=== PATIENT | male | born 1985 | race African-American/Black ===

== ENCOUNTER 2018-08-24 05:09 | Day surgery (SDC) | payer OTHER ==
--- NOTE | 2018-08-23 20:20 | PDGENHP ---
History and Physical - Chief Complaint LEFT HIP PAIN - History of Present Illness 1.~History of LEFT ROSALBA/Left Hip scope 2. ~History of RIGHT ROSALBA September 2007 3.~~Heterotopic ossification~and retained hardware~RIGHT hip HISTORY OF PRESENT ILLNESS: Megais a~32 y.o.~~active~male~who I have had the pleasure to consult on today. ~I have enjoyed meeting him.~Mc~lives in [place].~~[employer]orks in [employer].~~He~is ;~he~has 1~child.~~Megaenjoys weight lifting. Cuate's~left~hip pain~started 3 years ago, with~no~recalled trauma or injury, and with~no~previous complaints.~Megadoes not have~a known history of hip dysplasia. He had a Right ROSALBA September 2007; [place], [place] Presentation today is of~anterolateral~left~hip pain. ~The hip~does not~wake him ~at night and~does not~click and catch on~him. Sitting~can be uncomfortable~for him.~Megadoes~report suffering from lower back pain episodes. Megahas~participated in physical therapy (3 months)~and has~tried other MRI injection no pain relief~conservative measures including massage therapy and~ weight lifting.~Maryannhas not~received sufficient symptomatic improvement. Megahas not~utilized medication for pain management. Megahas~issues with the right~hip. ~ Megaunderstands that~maryannhas a hip and pelvis problem which should be researched and wishes to get a better understanding of~his~hip status, followed by an establishment of a treatment strategy, hopingmarciwould be able to get back to~his~well being active life. History: Past medical history:~~ None which is relevant~ Relevant familial history:~Mom: OA, RA, diabetes Past surgical history:~ No. Surgery Anesthesia 1 R ROSALBA general 2 Cyst excisions general 3 Umbilical hernia general Megadenies problematic issues with general anesthesia in the past. I have reviewed, verified and agree with the past medical, surgical, family and social history. Current Medications:~currently has no medications in their medication list. ALLERGIES:~has No Known Allergies. Objective: Physical Examination: Cutae~is 6~feet~0~inches tall and weighs~202~Lbs. Cuate~is AAO x3; he~is well- nourished, in NAD. Skin is warm and dry. ~Breathing is non-labored. ~CV with RRR by pulse. Abdomen is soft, NTND. Currently,~he~walks with a~normal~gait. Trendelenburg sign is~negative~and proprioception~is normal,~both~sides. He~presents~with mild~signs of joint laxity.~Beightons Score:~2 Lower spine examination is~negative~for sciatic or femoral nerve irritation with negative~SLR &~femoral stretch tests. Range of motion of the spine is normal~for flexion, extension, and rotations,~with~associated~left lumbar~pain. Strength, Sensation and pulses are~normal -~bilaterally Ankles and knees exams are~normal~and~no~mal-alignment is evident.~ He~has~leg length discrepancy~Right short 1cm~ Thigh circumference is~asymmetric~with low~muscle atrophy~on right~side. RIGHT HIP: Bony protrusion over AIIS Hip ROM (degrees): FL ER At 90~hip FL IR At 90~hip FL AB AD EX IR Neutral hip ER Neutral hip R 90 50 20 40 5 10 55 40 L 105 70 15 50 10 20 45 50 Specific hip and pelvis tests: Quadrant GEORGETTE Roll Add. Longus R ++ ++ Negative + L +++ +++ Negative Negative Glut. Med ITB R Negative 5/5 strength Negative 5/5 strength L Negative 5/5 strength Negative 5/5 strength Squeeze test measured~normal Bony Symphysis pubis is~pain free~to touch while concentric activity of the rectus abdominis, does not~produce pain at its insertion. Ilio Psos specific tests are~positive for pain during cycling for~the left hip~ and uremarkable for~snap.~ Greater trochanteric burse is~painful~on both hips, left > right. Piriformis tests: FAIR is~negative,~with no~local signs of neuritis related to sciatic nerve. SIJs examination is~produces pain on~left side~with~normal~GEORGETTE in relation and local tenderness. Hamstrings tests are~negative~functional contraction and negative~tendinopathy both hips. On a daily basis, the following percentages reflectNilesh's overall total pain: Deep hip:~70% GT:~30% Imaging: Radiology studies which I~have personally reviewed, analyzed and measured are below: XR: AP of the hip and pelvis: Performed in a~suboptimal~technique Coccyx~bleow~pubic symphysis Standing [place]~Lines are interrupted~On the LEFT Minimal~Pathological signs are seen in the Symphysis Pubis.~ Minimal~Pathological signs are seen at the Ischial~tuberosity. ~ Specific measurements show: NSA~ LCE Sourcil~Angle Sharp's angle Lat. Cam Lat. Pincer C.Over~sign Head~Coverage % ATDmm R N 25 12 43 - - - 78 N L N 8 26 47 + - - 57 N Pos. wall sign ISS NAD ~~Dysplasia Comments R + ++ 18~mm + L + Negative 21~mm +++ Sclerosis Sup. Lat. OA Cysts Joint Space-WBZ Joint Space-Medial R Negative Negative Negative 6.4~mm 4.5~mm L Negative Negative Negative 5.8~mm 5.2~mm X Table lateral: Anterior cam lesion is~seen~on the left hip. Alpha Angle: ~ Left~65~degrees MRI shows:~good cartilage coverage,~some anterior~edema~and small sub chondral cyst, hypertrophic labrum, labral tear Impression and plan:Zoraida Ayoubis a~32 y.o.~active male~suffering from symptomatic~left~hip pain due to Left~Hip Dyplasia~and cam type DELFINO~causing significant disability to~him~and altering~his~sport and life activities. Physical examination, imaging, and~his~story correspond with the diagnosis mentioned above. I explained that hip dysplasia is a condition wherein the hip joint has excessive play~and instability due to a variety of factors, including the depth and adequacy of the socket, the orientation of the femur bone, and ligament laxity around the hip joint. Dysplasia ranges in severity from borderline to zack, with treatment options being specific to the specific nature of the problem. Left untreated, the instability in the hip joint can cause progressive tearing of the labrum and deterioration of the surface cartilage, ultimately resulting in progressive osteoarthritis of the hip. I explained that femoroacetabular impingement (DELFINO - Cam type) arises due to a bony or soft tissue conflict between the femur (ball) and acetabulum (socket) caused by an abnormality in the shape of the femoral head and neck. Over time, repetitive impingement can result in damage to the labrum and adjacent surface cartilage within the socket, ultimately giving rise to progressive osteoarthritis of the hip. I explained that although a labral tear can be a source of pain, it is rarely the root of the problem and typically occurs secondary to an underlying abnormality in the shape and mechanics of the hip joint. I reviewed conservative treatment options for Dysplasia and DELFINO including activity modification to avoid positions of impingement or instability, physical therapy, non-steroidal anti-inflammatory medications, and various injections (corticosteroid and PRP) aimed at reducing inflammation in the hip joint or/and preventing dynamic instability and impingement. PRP injections may promote healing and reduce symptoms in certain cases but it will not repair chronically damaged tissue. Although these measures may help to buy time~and reduce current level of symptoms, they are not a definitive solution to the problem given the underlying abnormality in the shape of the hip joint. Patients who have failed conservative management and continue to experience symptoms are candidates for definitive surgical treatment, which may consist of hip arthroscopy alone or in combination with more invasive bony realignment procedures of the hip socket called periacetabular osteotomy (ROSALBA). Hip arthroscopy typically includes treating the labrum with either repair or reconstruction of the torn labrum; as well as addressing the underlying abnormalities by restoring the normal shape to the hip joint. If the cartilage is damaged a Microfracture surgical procedure may also be necessary to help stimulate the growth of fibrocartilage. If a patient requires a labral reconstruction or a Microfracture, the initial rehabilitation from the surgery may take longer, but the computer terminal operator results are typically favorable. I reviewed the technical aspects of periacetabular osteotomy (ROSALBA) including risks, benefits, and expected course of recovery.~Cuate~understands that ROSALBA is an inpatient procedure carried out through two medium sized incisions on the front and back of the hip joint. The hip socket is cut, realigned, and stabilized with 2 3 internal screws. Risks include infection, bleeding, injury to nearby nerves or vessels, stiffness, persistent pain, instability, failure of bony healing, implant related complications, and venous thromboembolic disease. Rarely, revision surgery may be required to address these problems. Risks, potential complications, side effects and recovery from surgical procedure were discussed in length. We explained how this surgery is an open procedure, and though patients tend to do well in the long-term, it involves significant pain in the first 2-4 weeks post-op and a rather lengthy rehab.~Overall recovery takes approximately 6 12~months depending on the extent of damage and degree of repair. Megaunderstands that he~will undergo hip arthroscopy 1 week prior to the ROSALBA to address damage inside the hip joint. Megaunderstands that hip arthroscopy and ROSALBA are two separate procedures that are best performed one week apart, with the arthroscopy commencing first to "tighten up" any pathology evident in the hip joint (labral repair, etc.) and the ROSALBA open procedure occurring 7-10 days later to realign the acetabulum. Megawill review the info presented. Megawill contact us if he~wishes to pursue further treatment in the future. Megais happy with this plan. I have also supplied~him~with handouts, outlining the expected surgical treatment and rehab involved. I wish~CuateZoraidaall the best, ~~ John Schrader, PAC History Information - Allergies/Home Medication List Allergies/Adverse Reactions: No Known Allergies Allergy (Unverified 07/30/18 16:34) Home Medications: Herbals/Supplements -Info Only 07/30/18 [Last Taken Unknown] I have personally reviewed and updated: medical history - Social History Smoking Status: Never smoked Review of Systems Review of Systems: Physical Exam Physical Exam:
[2018-08-24] MEDS ORDERED: PREGABALIN 150 MG CAP PO ONE (05:34)
[2018-08-24] MEDS ORDERED: ACETAMINOPHEN 500 MG TAB PO ONE (05:34)
[2018-08-24] MEDS ORDERED: ceFAZolin 2 GM/DEXTROSE 100 ML IV ONE (05:34)
[2018-08-24] MEDS ORDERED: LR 1,000 ML IV ONE (05:36)
--- NOTE | 2018-08-24 06:46 | PDANEPAE ---
ANE History of Present Illness hip pain ANE Past Medical History - Cardiovascular History Hx Hypertension: No Hx Arrhythmias: No Hx Chest Pain: No Hx Coronary Artery / Peripheral Vascular Disease: No Hx CHF / Valvular Disease: No Hx Palpitations: No - Pulmonary History Hx COPD: No Hx Asthma/Reactive Airway Disease: No Hx Recent Upper Respiratory Infection: No Hx Oxygen in Use at Home: No Hx Sleep Apnea: No Sleep Apnea Screening Result - Last Documented: Negative - Neurologic History Hx Cerebrovascular Accident: No Hx Seizures: No Hx Dementia: No - Endocrine History Hx Diabetes: No Hypothyroid: No Hyperthyroid: No Obesity: no - Renal History Hx Renal Disorders: No - Liver History Hx Hepatic Disorders: No - Neurological & Psychiatric Hx Hx Neurological and Psychiatric Disorders: No - Cancer History Hx Cancer: No - Congenital Disorder History Hx Congenital Disorders: No - GI History GERD: no Hx Gastrointestinal Disorders: No - Other Health History Other Health History: LACTOSE INTOLERANT - Chronic Pain History Chronic Pain: Yes (ROBYN HIPS, BONES) - Surgical History Prior Surgeries: ARTHROSCOPY & ROSALBA L HIP. CYSTIC ACNE - OCCIPITAL & L AXILLA ANE Review of Systems Review of systems is: negative Review of Systems: - Exercise capacity METS (RN): 5 METS ANE Patient History - Allergies Allergies/Adverse Reactions: No Known Allergies Allergy (Unverified 07/30/18 16:34) - Home Medications Home medications: home medication list seen and reviewed Home Medications: Herbals/Supplements -Info Only 07/30/18 [Last Taken 08/20/18] - NPO status NPO Status: no food or drink >8 hours NPO Since - Liquids (Date): 08/23/18 NPO Since - Liquids (Time): 19:00 NPO Since - Solids (Date): 08/23/18 NPO Since - Solids (Time): 18:00 - Anes Hx Anes Hx: no prior problems - Smoking Hx Smoking Status: Never smoked - Family Anes Hx Family Anes Hx: none Family Hx Anesthesia Complications: NEG ANE Labs/Vital Signs - Vital Signs Blood Pressure: 116/67 Heart Rate: 116 Respiratory Rate: 16 O2 Sat (%): 97 Height: 182.88 cm Weight: 95.254 kg ANE Physical Exam - Airway Neck exam: FROM Mallampati Score: Class 2 Mouth exam: normal dental/mouth exam - Pulmonary Pulmonary: no respiratory distress, clear to auscultation - Cardiovascular Cardiovascular: regular rate and rhythym, no murmur, rub, or gallop - ASA Status ASA Status: I ANE Anesthesia Plan Anesthesia Plan: general endotracheal anesthesia, GA w LMA
[2018-08-24] MEDS ORDERED: LIDOCAINE 1% 300 MG/30 ML SDV ONE (06:48)
[2018-08-24] MEDS ORDERED: PROPOFOL 200 MG/20 ML VIAL ONE (06:51)
[2018-08-24] MEDS ORDERED: fentaNYL 250 MCG/5 ML INJ ONE (06:51)
[2018-08-24] MEDS ORDERED: LIDOCAINE 2% 2 ML INJ ONE (06:52)
[2018-08-24] MEDS ORDERED: ePHEDrine SULFATE 25 MG/5 ML SYR ONE (07:23)
[2018-08-24] MEDS ORDERED: KETOROLAC 30 MG/1 ML SDV ONE (07:35)
[2018-08-24] MEDS ORDERED: ONDANSETRON 4 MG/2 ML VIAL ONE (07:35)
[2018-08-24] MEDS ORDERED: DEXAMETHASONE 4 MG/ML VIAL ONE (07:35)
[2018-08-24] MEDS ORDERED: MEPERIDINE 25 MG/0.5 ML AMP IVP PRN (07:45)
[2018-08-24] MEDS ORDERED: LR 500 ML IV PRN (07:45)
[2018-08-24] MEDS ORDERED: NALOXONE HCL 0.4 MG/ML INJ IVP PRN (07:45)
[2018-08-24] MEDS ORDERED: fentaNYL 100 MCG/2 ML INJ IVP PRN (07:45)
--- NOTE | 2018-08-24 07:45 | POSTANESTH ---
Post Anesthetic Evaluation Cardiovascular Status: Normal, Stable Respiratory Status: Normal, Stable Level of Consciousness/Mental Status: Can Participate in Eval Pain Control: Adequate, Prn Tx Ordered Nausea/Vomiting Control: Adequate, Prn Tx Ordered Complications Possibly Related to Anesthesia: None Noted
[2018-08-24] MEDS ORDERED: PROMETHAZINE HCL 25 MG/ML INJ ONE (08:38)
[2018-08-24] MEDS: PROMETHAZINE HCL 25 MG/ML INJ IVP PRN ×2 (08:40→08:56)
[2018-08-24 10:07] VITALS: BP 127/83
== END 2018-08-24 10:14 | disposition home or self-care (01) ==
LOC: FSGY 05:09
PROVIDERS: ATTEND Orthopaedic Surgery Sports Medicine
PROC: 0SP804Z Removal of Internal Fixation Device from Left Sacroiliac Joint, Open Approach (ICD-10-PCS; principal; 2018-08-24 07:15)
DX: T84.84XA Pain due to internal orthopedic prosthetic devices, implants and grafts, initial encounter (principal)
CPT/HCPCS: J0690; J1100; J1885; J2405; J2550; J2704; J3010